=== PATIENT | male | born 1955 | race Caucasian/White ===

== ENCOUNTER → 2024-03-26 12:35 | Outpatient (REF) | payer MEDICARE, OTHER, SELFPAY | LOC: RAD 12:35 | PROVIDERS: ATTENDING PHYSICIAN Surgery Vascular Surgery; FAMILY PHYSICIAN Family Medicine | DX: I73.9 Peripheral vascular disease, unspecified (principal) | CPT/HCPCS: 93922 ==

== ENCOUNTER → 2024-04-03 14:37 | Outpatient (REF) | payer MEDICARE, OTHER, SELFPAY | LOC: HWRCS 14:37 | PROVIDERS: ATTENDING PHYSICIAN Internal Medicine; FAMILY PHYSICIAN Family Medicine | DX: I25.10 Atherosclerotic heart disease of native coronary artery without angina pectoris (principal); I10 Essential (primary) hypertension; R00.2 Palpitations | CPT/HCPCS: 93306 ==

== ENCOUNTER → 2024-04-17 08:15 | Outpatient (REF) | payer MEDICARE, OTHER, SELFPAY | LOC: DHCBC/DCA 08:15 | PROVIDERS: ATTENDING PHYSICIAN Internal Medicine; FAMILY PHYSICIAN Family Medicine | DX: I25.10 Atherosclerotic heart disease of native coronary artery without angina pectoris (principal); R00.2 Palpitations | CPT/HCPCS: 78452; 93017; A9500 ==

== ENCOUNTER → 2024-08-07 06:28 | Day surgery (SDC) | payer MEDICARE, OTHER, SELFPAY | LOC: GI 06:28 | PROVIDERS: ATTENDING PHYSICIAN Specialist; FAMILY PHYSICIAN Family Medicine | PROC: 0DJD8ZZ Inspection of Lower Intestinal Tract, Via Natural or Artificial Opening Endoscopic (ICD-10-PCS; 2024-08-07) | DX: Z12.11 Encounter for screening for malignant neoplasm of colon (principal); Z86.0100 Personal history of colon polyps, unspecified; K57.30 Diverticulosis of large intestine without perforation or abscess without bleeding; K56.2 Volvulus | CPT/HCPCS: G0105 ==

== ENCOUNTER → 2024-09-03 08:16 | Outpatient (REF) | payer MEDICARE, OTHER, SELFPAY | LOC: DHVS 08:16 | PROVIDERS: ATTENDING PHYSICIAN Surgery Vascular Surgery; FAMILY PHYSICIAN Family Medicine | DX: I71.40 Abdominal aortic aneurysm, without rupture, unspecified (principal) | CPT/HCPCS: 76770 ==

== ENCOUNTER 2025-02-05 06:07 | Day surgery (SDC) | payer MEDICARE, OTHER, SELFPAY ==
[2025-02-05 11:21] VITALS: BMI 30.3
[2025-02-05 11:22] VITALS: BMI 30.3
[2025-02-05 11:23] VITALS: BP 123/79
[2025-02-05 14:07] VITALS: BP 105/65
[2025-02-05 14:15] VITALS: BP 114/74
[2025-02-05 14:30] VITALS: BP 121/70
== END 2025-02-05 14:40 | disposition home or self-care (01) ==
LOC: SDS 06:07
PROVIDERS: ATTENDING PHYSICIAN Internal Medicine Gastroenterology
DX: R93.3 Abnormal findings on diagnostic imaging of other parts of digestive tract (principal); K64.0 First degree hemorrhoids; Z86.0100 Personal history of colon polyps, unspecified
CPT/HCPCS: G0105